=== PATIENT | male | born 1960 | race Caucasian/White ===

== ENCOUNTER 2017-01-31 07:18 | Outpatient (CLI) | payer MEDICAID ==
[~2017-01-31] VITALS: Ht 172.7 cm; Wt 90.9 kg
--- NOTE | ~2017-01-31 | HEMODYNAMI ---
PATIENT:TIGRE DE LEÓN MEDICAL RECORD: [id number] : 64 LOCATION:[facility] ADMISSION DATE: 01/31/17 Generatedon:01/31/20179:51 Patient name: TIGRE DE LEÓN Patient #: [id number] SSN: [id number] : 1960 Date of study: 01/31/2017 Page: Of Hemodynamic Procedure Report Patient Data Patient Demographics Procedure consent was obtained First Name: TIGRE Gender: Male Last Name: SARTHAK : 1960 Patient #: [id number] Age: 56 year(s) Race: Unknown SSN: [id number] Additional ID: [id number] Contact details [address]: [address] [place] [address] State: [place] City: [place] Zip code: [address] Past Medical History Allergies Allergen Reaction Date Comments Reported Other allergy 01/31/2017 Atenolol, Naproxen Admission Admission Data Admission Date: 01/31/2017 Admission Time: 7:18 Arrival Date: 01/31/2017 Arrival Time: 0:00 Admit Source: Other Insurance Payor: Private health insurance Height (in.): 69 BSA: 2.08 (m2) Height (cm.): 175.26 BMI: 30.13 (kg/m2) Weight (lbs.): 204 Weight (kg.): 92.53 Lab Results Lab Result Date: 01/31/2017 Lab Result Time: 0:00 Biochemistry Name Units Result Min Max BUN mg/dl 20 --(----)*- 7 18 Creatinine mg/dl 1 --(--*-)-- 0.6 1.3 CBC Name Units Result Min Max Hemoglobin g/dl 14.6 --(-*--)-- 13.5 17.5 Procedure Procedure Types Cath Procedure Diagnostic Procedure [facility] w/Coronaries FFR/IVUS PCI Procedure Coronary Stent Initial Miscellaneous Procedures Moderate Sedation up to 15 minutes Procedure Description Procedure Date Procedure Date: 01/31/2017 Procedure Start Time: 9:34 Procedure End Time: 9:50 Procedure Staff Name Function Alexsander Hinds MD Performing Physician Cecilia Colon RN Nurse Tonia Aguirre RT Monitor Davin Hope RT Scrub Procedure Data Cath Procedure Fluoroscopy Diagnostic fluoroscopy Total fluoroscopy Time: 4.4 time: 4.4 min min Diagnostic fluoroscopy Total fluoroscopy dose: 750 dose: 750 mGy mGy Contrast Material Contrast Material Type Amount (ml) Isovue 300 98 Entry Location Entry Primary Successful Side Size Upsize Upsize Entry Closure [place]ina ccessful Closure Location (Fr) 1 (Fr) 2 (Fr) Remarks Device Remarks Radial Right 6 Fr Mechanical TR b artery Short Compression Estimated blood loss: 10 ml Diagnostic catheters Device Type Used For End Catheter Placement Terumo 5Fr [place] 110cm Procedure catheter Procedure Complications No complications Procedure Medications Medication Administration Route Dosage Oxygen NC 2 l/min Lidocaine 2% added to field 20 Heparin Flush Bag added to field 2 bags (1000units/500ml NS) 0.9% NaCl I.V. 100 ml/hr Versed I.V. 1 mg Fentanyl I.V. 50 mcg Versed I.V. 1 mg Fentanyl I.V. 50 mcg Radial Cocktail I.A. 1 syringe (Verapomil 2mg/Nitro 400mcg/Heparin 1500units) Heparin Bolus I.V. 4000 units Fentanyl I.V. 25 mcg Hemodynamics Rest BSA: 2.08 (m2) HGB: 14.6 (g/dl) O2 Consumption: Estimated: 236.32 (ml/min) O2 Co nsumption indexed: Estimated:113.62 (ml/min/m) Heart Rate: 56 (bpm) Snapshots Pre Cath Intra NCS Post Cath Vital Signs Time Heart Resp SPO2 etCO2 KA7hcpm NIBP (mmHg) Rhythm Pain Sedation Rate (ipm) (%) (mmHg) (mmHg) Status Level (bpm) 9:19:17 56 19 99 0 0 135/81(108) NSR 0 (11) 10(A) , No pain 9:23:29 60 18 99 0 0 124/83(97) NSR 0 (11) 10(A) , No pain 9:27:41 65 17 95 0 0 121/79(89) NSR 0 (11) 10(A) , No pain 9:31:51 70 14 96 0 0 124/78(92) NSR 0 (11) 9(A) , No pain 9:36:03 72 25 93 0 0 119/69(90) NSR 0 (11) 9(A) , No pain 9:40:15 74 15 95 0 0 118/71(88) NSR 0 (11) 9(A) , No pain 9:44:26 69 16 95 0 0 119/71(79) NSR 0 (11) 9(A) , No pain 9:48:39 69 16 95 0 0 116/71(77) NSR 0 (11) 9(A) , No pain 9:50:21 65 17 94 0 0 116/71(87) NSR 0 (11) 10(A) , No pain Medications Time Medication Route Dose Verified Delivered Reason Notes Effectiveness by by 9:20:39 Oxygen NC 2 l/min Alexsander Brooks used for Guzman Colon RN procedure 9:20:45 Lidocaine 2% added 20ml Alexsander Beltre for local to vial Guzman Hinds MD anesthetic field 9:20:54 Heparin Flush added 2 bags Alexsander Beltre used for Bag to Guzman Hinds MD procedure (1000units/500ml field NS) 9:21:03 0.9% NaCl I.V. 100 Alexsander Brooks Per physician ml/hr Guzman Colon RN 9:25:16 Versed I.V. 1 mg Alexsander Brooks for sedation Guzman Colon RN 9:25:22 Fentanyl I.V. 50 mcg Alexsander Brooks for sedation Guzman Colon RN 9:29:56 Versed I.V. 1 mg Alexsander Brooks for sedation Guzman Colon RN 9:30:00 Fentanyl I.V. 50 mcg Alexsander Brooks for sedation Guzman Colon RN 9:33:59 Radial Cocktail I.A. 1 Alexsander Beltre for (Verapomil syringe Guzman Hinds MD vasodilation 2mg/Nitro 400mcg/Heparin 1500units) 9:38:50 Heparin Bolus I.V. 4000 Alexsander Brooks for units Guzman Colon RN anticoagulation 9:41:04 Fentanyl I.V. 25 mcg Alexsander Brooks for sedation Guzman Colon RN Procedure Log Time Note 9:06:38 Diagnostic Cath Status : Elective 9:06:58 Cecilia Colon RN sent for patient. Start room use. 9:06:59 Time tracking: Regular hours 9:07:02 Plan of Care:Hemodynamics will remain stable., Cardiac rhythm will remain stable., Comfort level will be maintained., Respiratory function will remain adequate., Patient/ family verbilizes understanding of procedure., Procedure tolerated without complication., Recovers from procedure without complications.. 9:08:15 H&P Date Dictated: 01/10/2017 Within 30 days and on chart., H&P Addendum completed by physician on day of procedure. (MUST COMPLETE FOR ALL OUTPATIENTS). 9:17:40 Patient Height : 69 cm 9:17:44 Patient Weight : 204 kg 9:17:44 Admit Source: Other 9:17:52 Insurance Payor : Private health insurance 9:17:55 Arrival Date: 01/31/2017 12:00:00 AM 9:18:05 Patient received from Pre/Post Procedure Room to CCL 1 Alert and oriented. Tansferred to table in Supine position. 9:18:06 Warm blankets applied, and jose hugger turned on for patient comfort. 9:18:07 Correct patient and procedure confirmed by team. 9:18:08 Signed procedure consent form obtained from patient. 9:18:10 ECG and BP/O2 sat monitors applied to patient. 9:18:11 Vital chart was started 9:18:12 Baseline sample Acquired. 9:18:18 Rhythm: sinus rhythm 9:18:20 Full Disclosure recording started 9:18:26 Pre-procedure instructions explained to patient. 9:18:28 Family in waiting room. 9:18:30 Patient NPO since Midnight. 9:19:21 Patient allergic to Other allergyAtenolol, Naproxen 9:19:26 Is the patient allergic to Iodine/contrast media? No. 9:19:28 Is patient on blood thinner?Yes 9:19:31 ACC The patient was administered the following blood thiners within the last 24 hours: ACCPlavix 9:19:33 Patient diabetic? No. 9:19:38 Snore? Yes 9:19:40 Sleep apnea? Yes 9:19:49 Dentures? No ? 9:20:05 IV patent on arrival in left forearm with 0.9% NaCl at O. 9:20:18 Physician arrived 9:20:39 Oxygen 2 l/min NC was administered by Cecilia Colon RN; used for procedure; 9:20:45 Lidocaine 2% 20ml vial added to field was administered by Alexsander Hinds MD; for local anesthetic; 9:20:54 Heparin Flush Bag (1000units/500ml NS) 2 bags added to field was administered by Alexsander Hinds MD; used for procedure; 9:21:03 0.9% NaCl 100 ml/hr I.V. was administered by Cecilia Colon RN; Per physician; 9:23:22 Lab results completed and on chart. 9:23:27 Right Radial & Right Groin area was prepped with chlora-prep and draped in sterile fashion 9:: Alarms reviewed by R. N. 9::29 Sharps counted by scrub and verified by R.N. 9::30 Physician paged 9:23:32 Physician arrived 9::33 --------ALL STOP TIME OUT------ 9::33 Final Timeout: patient, procedure, and site verified with staff and physician. All members of the team are in agreement. 9:23:37 Right Radial & Right Groin site verified by team. 9:23:42 Physical assessment completed. ASA score P 2 - A patient with mild systemic disease as per Alexsander Hinds MD. 9:23:47 Sedation plan: IV Moderate Sedation Versed, Fentanyl 9:24:45 Lab Result : BUN 20 mg/dl 9::45 Lab Result : Creatinine 1 mg/dl 9:24:45 Lab Result : Hemoglobin 14.6 g/dl 9:24:52 Use device set Radial Dx 9:24:53 Acist Syringe opened to sterile field. 9:24:54 Medline Cath Pack opened to sterile field. 9:24:54 Bag Decanter opened to sterile field. 9:24:54 Terumo 6Fr Slender Glidesheath opened to sterile field. 9:24:55 St Jason 260cm J .035 wire opened to sterile field. 9:24:55 Acist Hand Control opened to sterile field. 9:24:56 Acist Manifold opened to sterile field. 9:24:56 Tegaderm 4 x 4 opened to sterile field. 9:24:57 MBrace Wrist Support opened to sterile field. 9:25:16 Versed 1 mg I.V. was administered by Buffie Colon RN; for sedation; 9:25:22 Fentanyl 50 mcg I.V. was administered by Cecilia Colon RN; for sedation; 9:29:56 Versed 1 mg I.V. was administered by Cecilia Colon RN; for sedation; 9:30:00 Fentanyl 50 mcg I.V. was administered by Cecilia Colon RN; for sedation; 9:33:59 Radial Cocktail (Verapomil 2mg/Nitro 400mcg/Heparin 1500units) 1 syringe I.A. was administered by Alexsander Hinds MD; for vasodilation; 9:34:12 Procedure started. 9:34:17 Local anesthetic to right radial artery with Lidocaine 2% by Alexsander Hinds MD.INITIAL ACCESS ONLY 9:34:26 A 6 Fr Short sheath was inserted into the Right Radial artery 9:34:42 Zero performed for pressure channel P1 9:34:49 Zero performed for pressure channel P1 9:35:03 J wire advanced. 9:35:35 A Webjam 5Fr [place] 110cm catheter was advanced over the wire and used for Procedure. 9:35:41 LV angiography performed. 9:35:46 EF : 60 % 9:35:57 RCA angiography performed. 9:36:20 Catheter removed. 9:36:59 Proceeding to intervention. 9:37:01 Medtronic Launcher 6Fr EBU 3.5 guide catheter opened to sterile field. 9:37:08 NantMobile BasixCompak Inflation Kit opened to sterile field. 9:37:09 Dyer New KCBXisper J 300cm 0.014 guide wire opened to sterile field. 9:37:21 6 Fr EBU 3.5 guide catheter was inserted over the wire 9:38:50 Heparin Bolus 4000 units I.V. was administered by Cecilia Colon RN; for anticoagulation; 9:39:59 [place] Inaja Eagleye IVUS Catheter opened to sterile field. 9:40:00 Medtronic Launcher 6Fr AR 2.0 guide catheter opened to sterile field. 9:40:06 5 Fr ? guide catheter was inserted over the wire 9:40:11 6 Fr AR 2 guide catheter was inserted over the wire 9:40:27 Whisper wire advanced. 9:41:04 Fentanyl 25 mcg I.V. was administered by Cecilia Colon RN; for sedation; 9:41:20 IVUS catheter advanced over wire. 9:41:24 IVUS pass to RCA lesion performed. 9:42:57 IVUS catheter removed over wire. 9:43:51 Wire removed. 9:43:52 Guide catheter removed. 9:43:55 6 Fr EBU 3.5 guide catheter was inserted over the wire 9:44:20 Whisper wire advanced. 9:46:40 Inflation Number: 1 A Medtronic Integrity 3.0 X 9 stent was prepped and advanced across the Undefined1. The stent was deployed at 13 PAM for 0:10 (min:sec). 9:47:35 Terumo TR Band Standard opened to sterile field. 9:47:42 Wire removed. 9:47:43 Guide catheter removed. 9:48:08 Sheath removed intact; hemostasis achieved with Mechanical Compression to the Right Radial artery. 9:48:12 Procedure ended.(Physican Out) 9:48:41 Fluoroscopy time 04.40 minutes. 9:48:48 Fluoroscopy dose: 750 mGy 9:48:48 Flurop Dose total: 750 9:48:52 Contrast amount:Isovue 300 98ml. 9:48:54 Sharps counted by scrub and verified by R.N. 9:48:59 TR band inflated with 13cc of air. 9:49:01 Insertion/operative site no bleeding no hematoma. 9:49:10 Post right radial artery:stable 9:49:15 Post Procedure Pulses reassessed and unchanged 9:49:19 Post-procedure physical assessment completed. ASA score P 2 - A patient with mild systemic disease as per Alexsander Hinds MD. 9:49:22 Post procedure rhythm: unchanged. 9:49:25 Estimated blood loss: 10 ml 9:49:28 Post procedure instruction explained to patient.Patient verbalizes understanding. 9:49:51 Procedure type changed to Cath procedure, Diagnostic procedure, LHC, LHC w/Coronaries, FFR/IVUS, PCI procedure, Coronary Stent Initial, Miscellaneous Procedures, Moderate Sedation up to 15 minutes 9:49:53 Procedure and supply charges have been captured, reviewed, submitted and are correct. 9:50:26 Procedure Complication : No complications 9:50:28 Vital chart was stopped 9:50:29 See physician's report for complete and final results. 9:50:34 Report given to Pre/Post Procedure Room. 9:50:38 Patient transfered to Pre/Post Procedure Room with Stretcher. 9:50:41 Procedure ended. 9:50:41 Full Disclosure recording stopped 9:50:44 End room use (Document Last) 9:50:44 End room use (Document Last) Intervention Summary Intervention Notes Time ActionType Lesion and Equipment Action# Pressure Duration Attributes Used 9:46:[address] Place stent Undefined1 Medtronic 1 13 00:10 Integrity 3.0 X 9 stent Device Usage Item Name Manufacture Quantity Catalog Hospital Part Current Minimal Lot# / Number Charge Number Stock Stock Serial# Code Acist Acist 1 36899 [id number] 253372 336432 20 Syringe Medical Systems Inc Medline Cardinal 1 [id number] 370223 90058 882641 5 Cath Pack Health Bag Microtek 1 2001S 472176 75575 530736 5 [employer] Terumo 6Fr Terumo 1 [id number] 332223 607267 556271 [address] Jason 1 441937 690985 849457 374750 30 260cm J .035 wire Acist Hand Acist 1 70011 520152 077613 529574 5 Control Medical Systems Inc Acist Acist 1 72628 266785 286435 770606 5 Manifold Medical Systems Inc Tegaderm 4 3M 1 1626W 291602 577300 029551 5 x 4 MBrace Advanced 1 140-0250-00 976910 11033 872968 5 Wrist Vascular Support Dynamics Terumo 5Fr Terumo 1 77-8842 190630 617156 101513 5 [place] 110cm catheter Medtronic Medtronic 1 [id number] 732365 51908 534758 3 Launcher 6Fr EBU 3.5 guide catheter Merit Merit 1 [id number] 474557 166117 911248 15 BasixCompak Medical Inflation Kit Dyer Dyer 1 [id number] 623920 851007 158786 5 Whisper J Vascular 300cm 0.014 guide wire [place] 1 [id number] 570568 895404 405110 8 Inaja Eagleye IVUS Catheter Medtronic Medtronic 1 [id number] 267615 47660 597852 1 Launcher 6Fr AR 2.0 guide catheter Medtronic Medtronic 1 [id number] 110896 219721 780911 1 [id number] Integrity 3.0 X 9 stent Terumo TR Terumo 1 [id number] 362548 578594 727436 40 Band Standard Signature Audit [place] Stage Time Signature Unsigned Intra-Procedure 01/31/2017 Tonia Aguirre 9:51:27 AM RT(R) Signatures Monitor : Tonia Aguirre Signature : RT Date : Time : [place] [id number] [place] [address]
[2017-01-31] MEDS ORDERED: PRINIVIL20 MG PO (07:37)
[2017-01-31] MEDS ORDERED: PLAVIX75 MG PO (07:37)
[2017-01-31 07:38] VITALS: BP 132/85; Ht 172.7 cm; Wt 90.9 kg
[2017-01-31 07:56] LABS: BASOPHILS 0.1 % (0.0-2.0); EOSINOPHILS 0.7 % (0-7); HEMATOCRIT 43.1 % (42.0-54.0); HEMOGLOBIN 14.6 g/dL (13.5-17.5); LYMPHOCYTES 25.9 % (15-50); MCH 27.9 pg (26.0-34.0); MCHC 33.9 g/dL (31.0-37.0); MCV 82.3 fL (80.0-100.0); MEAN PLATELET VOLUME 11.1 fL (7.4-10.4); MONOCYTES 8.2 % (2-11); NEUTROPHILS 64.1 % (40-80); PLATELET COUNT 181 10x3/uL (130-400); RBC 5.24 10x6/uL (4.20-6.10); RDW 13.8 % (11.5-14.5); WBC 10.4 10x3/uL (4.8-10.8)
[2017-01-31 08:39] LABS: CALC OSMOLALITY 274 mosm/kg (275-300); CALCIUM 8.8 mg/dL (8.5-10.1); CARBON DIOXIDE 23.9 mmol/L (21.0-32.0); CHLORIDE - SERUM 103 mmol/L (98-107); GLUCOSE 96 mg/dL (74-106); POTASSIUM - SERUM 4.2 mmol/L (3.5-5.1); SODIUM 136 mmol/L (136-145); UREA NITROGEN 20 mg/dL (7-18); eGFR NON AFRICAN AMERICAN 83 mL/min (90-120)
[2017-01-31] MEDS ORDERED: BAYER CHEWABLE81 MG PO (10:14)
--- NOTE | 2017-01-31 10:36 | NUR ---
1015 NSR RATE 64 W NO C/O CHEST PAIN. PULSES PALP X 4. DR. MCNALLY AT BEDSIDE TO TALK WITH ABOUT FINDINGS. ROOM AIR W NO DISTRESS. R WRIST TR BAND C/D/I WITH BRACE IN PLACE. REMAINS C/D/I WITH NO HEMATOMA OR BLEEDING. AT BEDSIDE.
--- NOTE | 2017-01-31 11:10 | NUR ---
1045 SITTING UP, ROOM AIR WITH NO DISTRESS. NSR RATE 62 W NO C/O CHEST PAIN. PULSES PALP X 4. R WRIST TR BAND C/D/I WITH NO HEMATOMA OR BLEEDING.
--- NOTE | 2017-01-31 12:36 | NUR ---
SITTING UP IN BED EATING SANDWICH. VOIDED 600 CC URINE VIA URINAL. R WRIST TR BAND C/D/I WITH NO HEMATOMA OR BLEEDING.
--- NOTE | 2017-01-31 13:36 | NUR ---
PIV REMOVED FROM LEFT HAND WITH BANDAID APPLIED. 3CC REMOVED FROM R WRIST TR BAND. WILL MONITOR FOR BLEEDING.
--- NOTE | 2017-01-31 13:52 | NUR ---
TR BAND REMOVED, DRESSED WITH COTTON BALL AND TEGADERM WITH BRACE INTACT. D/C INSTRUCTIONS DISCUSSED WITH PATIENT AND AT BEDSIDE. WHEELED OUT VIA WHEELCHAIR.
--- NOTE | 2017-02-10 10:19 | OP ---
PATIENT NAME: TIGRE DE LEÓN MEDICAL RECORD: [id number] :64 LOCATION:[facility] ADMISSION DATE: SURGEON: LITA MCNALLY MD DATE OF OPERATION: 01/31/2017 PROCEDURES: 1. PTCA stent, left circumflex. 2. Left heart catheterization. 3. Selective coronary angiography. 4. Left ventriculogram. 5. Intravascular ultrasound. PROCEDURE IN DETAIL: After informed consent was obtained and after detailed explanation of risks, benefits as well as alternative therapies, the patient elected to proceed with angiogram and angioplasty. The right radial area was prepped and draped in normal sterile fashion. The right radial artery was cannulated via modified Seldinger technique with placement of 6-Malian sheath. All catheters exchanged through this sheath. FINDINGS: Left ventriculogram was performed in the standard 30-degree JAIMES view, reveals good cardiac wall motion throughout all segments. Overall ejection fraction is 60%. SELECTIVE CORONARY ANGIOGRAPHY: 1. Left main showed no significant angiographic disease. 2. Left anterior descending has mild irregularities, but no flow-limiting stenosis. 3. The left circumflex has 70%-75% stenosis of the terminal large second obtuse marginal. 4. Right coronary has mild irregularities, there was a questionable area in the mid vessel; however, intravascular ultrasound revealed that this is no greater than 30%. PTCA STENT OF THE LEFT CIRCUMFLEX: The stent used is a 3.0 x 9 mm Integrity. Result was 0% residual stenosis. OVERALL IMPRESSION: Successful percutaneous transluminal coronary angioplasty stent of the left circumflex going from 70%-75% initial stenosis to 0% residual. TRANSINT:[id number] Voice Confirmation ID: [id number] DOCUMENT ID: [id number] LITA MCNALLY MD at 1019 CC: [id number] DICTATION DATE: 01/31/17 0952 EQUIPMENT INSTALLER: 01/31/17 1004 DEP CLI 01/31/17 [place] [id number]
== END 2017-01-31 13:54 | disposition home or self-care (01) ==
LOC: D.CATH 07:18
PROVIDERS: Internal Medicine Interventional Cardiology
DX: I25.119 Atherosclerotic heart disease of native coronary artery with unspecified angina pectoris (principal)

== ENCOUNTER 2019-01-21 07:54 | Outpatient (CLI) | payer OTHER ==
[~2019-01-21] VITALS: Ht 172.7 cm; Wt 90.9 kg
--- NOTE | ~2019-01-21 | HEMODYNAMI ---
PATIENT:TIGRE DE LEÓN MEDICAL RECORD: [id number] : 64 LOCATION:[facility] ADMISSION DATE: 01/21/19 Generatedon:01/21/201910:16 Patient name: TIGRE DE LEÓN Patient #: [id number] SSN: [id number] : 1960 Date of study: 01/21/2019 Page: Of Hemodynamic Procedure Report Patient Data Patient Demographics Procedure consent was obtained First Name: TIGRE Gender: Male Last Name: SARTHAK : 1960 Middle Initial: MATTHEW Age: 58 year(s) Patient #: [id number] Race: Unknown SSN: [id number] Additional ID: [id number] Contact details [address]: [address] [place] [address] State: [place] City: [place] Zip code: [address] Past Medical History Allergies Allergen Reaction Date Comments Reported Other allergy 01/31/2017 Atenolol, Naproxen Other allergy 01/21/2019 ATENOLOL, NAPROXEN Admission Admission Data Admission Date: 01/21/2019 Admission Time: 7:54 Height (in.): 68 BSA: 2.14 (m2) Height (cm.): 172.72 BMI: 33.91 (kg/m2) Weight (lbs.): 223 Weight (kg.): 101.15 Lab Results Lab Result Date: 01/21/2019 Lab Result Time: 0:00 Biochemistry Name Units Result Min Max BUN mg/dl 14 --(--*-)-- 7 18 Creatinine mg/dl 1.1 --(--*-)-- 0.6 1.3 CBC Name Units Result Min Max Hemoglobin g/dl 14.5 --(*---)-- 13.5 17.5 Procedure Procedure Types Cath Procedure Diagnostic Procedure [facility] w/Coronaries FFR/IVUS Intra-Coronary IVUS Initial PCI Procedure Coronary Stent Coronary Stent Initial Procedure Description Procedure Date Procedure Date: 01/21/2019 Procedure Start Time: 9:57 Procedure End Time: 10:13 Procedure Staff Name Function Randy Garcia RN Cat Cracker Operator Alexsander Hinds MD Performing Physician Matthew Valle RT Monitor Radha Pagan RT Scrub Sophia Ford RN Nurse Procedure Data Cath Procedure Fluoroscopy Diagnostic fluoroscopy Total fluoroscopy Time: 5.5 time: 5.5 min min Diagnostic fluoroscopy Total fluoroscopy dose: 706 dose: 706 mGy mGy Contrast Material Contrast Material Type Amount (ml) Isovue 300 106 Entry Location Entry Primary Successful Side Size Upsize Upsize Entry Closure [place]ina ccessful Closure Location (Fr) 1 (Fr) 2 (Fr) Remarks Device Remarks Radial Right 6 Fr Mechanical artery Short Compression Diagnostic catheters Device Type Used For End Catheter Placement DIAGNOSTIC Bunker 110cm 5 Left Coronary Fr catheter ([id number]) Angiography Procedure Complications No complications Procedure Medications Medication Administration Route Dosage 0.9% NaCl I.V. 100 ml/hr Oxygen etCO2 Nasal cannula 2 l/min Lidocaine 2% added to field 20 Heparin Flush Bag added to field 2 bags (1000units/500ml NS) Radial Cocktail added to field 1 syringe (Verapomil 2mg/Nitro 400mcg/Heparin 1500units) Versed I.V. 2 mg Fentanyl I.V. 50 mcg Versed I.V. 1 mg Fentanyl I.V. 25 mcg Heparin Bolus I.V. 4000 units Hemodynamics Rest BSA: 2.14 (m2) HGB: 14.5 (g/dl) O2 Consumption: Estimated: 256.46 (ml/min) O2 Co nsumption indexed: Estimated:119.84 (ml/min/m) Heart Rate: 74 (bpm) Snapshots Pre Cath Intra NCS Post Cath Vital Signs Time Heart Resp SPO2 etCO2 NIBP (mmHg) Rhythm Pain Sedation Rate (ipm) (%) (mmHg) Status Level (bpm) 9:45:40 58 18 96 37 123/81(98) NSR 0 (11) 10(A) , No pain 9:49:52 61 16 97 32.3 121/90(102) NSR 0 (11) 10(A) , No pain 9:54:06 75 12 96 39.1 114/78(99) NSR 0 (11) 10(A) , No pain 9:58:20 75 15 98 33.8 114/79(88) NSR 0 (11) 10(A) , No pain 10:02:34 84 14 98 34.5 110/65(94) NSR 0 (11) 9(A) , No pain 10:06:46 80 15 96 20.3 111/72(96) NSR 0 (11) 9(A) , No pain 10:10:57 80 15 98 23.3 109/67(83) NSR 0 (11) 10(A) , No pain Medications Time Medication Route Dose Verified Delivered Reason Not es Effectiveness by by 9:44:53 0.9% NaCl I.V. 100 Alexsander Sophia used for ml/hr Guzman Ford scooping machine tender 9:44:59 Oxygen etCO2 2 l/min Alexsander Sophia used for Nasal Guzman Ford procedure cannula RN 9:45:04 Lidocaine 2% added 20ml Alexsander Alexsander for local to vial Guzman Hinds MD anesthetic field 9:45:08 Heparin Flush added 2 bags Alexsander Alexsander used for Bag to Guzman Hinds MD procedure (1000units/500ml field NS) 9:45:14 Radial Cocktail added 1 Alexsander Alexsander used for (Verapomil to syringe Guzman Hinds MD procedure 2mg/Nitro field 400mcg/Heparin 1500units) 9:53:44 Versed I.V. 2 mg Alexsander Sophia for sedation Guzman Ford RN 9:53:52 Fentanyl I.V. 50 mcg Alexsander Sophia for sedation Guzman Ford RN 9:59:05 Versed I.V. 1 mg Alexsander Sophia for sedation Guzman Ford RN 9:59:10 Fentanyl I.V. 25 mcg Alexsander Sophia for sedation Guzman Ford RN 10:05:44 Heparin Bolus I.V. 4000 Alexsander Sophia for shaheen ified units Guzman Ford anticoagulation with Dr. TOMAS Hinds Procedure Log Time Note 9:34:07 Informed consent obtained and on chart 9:34:48 Randy Garcia RN sent for patient. Start room use. 9:34:49 Time tracking: Regular hours (M-F 7:00 - 5:00) 9:35:01 Plan of Care:Hemodynamics will remain stable., Cardiac rhythm will remain stable., Comfort level will be maintained., Respiratory function will remain adequate., Patient/ family verbilizes understanding of procedure., Procedure tolerated without complication., Recovers from procedure without complications.. 9:38:21 Patient received from Pre/Post Procedure Room to CCL 1 Alert and oriented. Tansferred to table in Supine position. 9:38:23 Warm blankets applied, and jose hugger turned on for patient comfort. 9:38:23 Correct patient and procedure confirmed by team. 9:38:24 ECG and BP/O2 sat monitors applied to patient. 9:40:24 H&P Date Dictated: 01/14/2019 Within 30 days and on chart., H&P Addendum completed by physician on day of procedure. (MUST COMPLETE FOR ALL OUTPATIENTS). 9:40:26 Pre-procedure instructions explained to patient. 9:40:27 Pre-op teaching completed and patient verbalized understanding. 9:40:29 Family in patients room. 9:40:35 Patient NPO since Midnight. 9:40:55 Patient allergic to Other allergyATENOLOL, NAPROXEN 9:41:22 PRE LOADED ON PLAVIX 9:41:26 Patient diabetic? No. 9:41:30 Previous problem with sedation/anesthesia? No ? 9:41:31 Snore? Yes 9:41:32 Sleep apnea? Yes 9:41:33 Deviated septum? No 9:41:35 Opens mouth fully? Yes 9:41:36 Sticks out tongue? Yes 9:41:38 Airway obstruction? No ? 9:41:40 Dentures? No ? 9:41:55 Patient Height : 68 inches 9:42:00 Patient Weight : 223 lbs 9:44:31 Vital chart was started 9:44:53 0.9% NaCl 100 ml/hr I.V. was administered by Sophia Ford RN; used for procedure; 9:44:59 Oxygen 2 l/min etCO2 Nasal cannula was administered by Sophia Ford RN; used for procedure; 9:45:04 Lidocaine 2% 20ml vial added to field was administered by Alexsander Hinds MD; for local anesthetic; 9:45:08 Heparin Flush Bag (1000units/500ml NS) 2 bags added to field was administered by Alexsander Hinds MD; used for procedure; 9:45:14 Radial Cocktail (Verapomil 2mg/Nitro 400mcg/Heparin 1500units) 1 syringe added to field was administered by Alexsander Hinds MD; used for procedure; 9:47:47 Lab Result : BUN 14 mg/dl 9:47:47 Lab Result : Hemoglobin 14.5 g/dl 9:47:47 Lab Result : Creatinine 1.1 mg/dl 9:47:51 Modified Riley's test Ulnar < 7 seconds 9:47:57 Patient pain scale 0/10 ?. 9:48:04 IV patent on arrival in left hand with 0.9% NaCl at O. 9:48:07 Lab results completed and on chart. 9:48:12 Right Radial & Right Groin area was prepped with chlora-prep and draped in sterile fashion 9:48:14 Alarms reviewed by R. N. 9:48:14 Sharps counted by scrub and verified by R.N. 9:48:25 Use device set Radial Dx or PCI 9:48:26 ACIST Syringe (87855) opened to sterile field. 9:48:26 Medline Cath Pack ([id number]) opened to sterile field. 9:48:28 Tegaderm 4 x 4 (1626W) opened to sterile field. 9:48:31 Bag Decanter (2002S) opened to sterile field. 9:48:32 ACIST Hand Control (06950) opened to sterile field. 9:48:33 ACIST Manifold (82474) opened to sterile field. 9:48:34 DIAGNOSTIC WIRE .035 260cm J wire (023660) opened to sterile field. 9:48:35 MBrace Wrist Support ([id number]) opened to sterile field. 9:48:36 SHEATH 6FR Slender (45-5130) opened to sterile field. 9:51:14 Baseline sample Acquired. 9:51:18 Rhythm: sinus rhythm 9:51:20 Full Disclosure recording started 9:52:22 Physician arrived 9:52:23 --------ALL STOP TIME OUT------ 9:52:23 Final Timeout: patient, procedure, and site verified with staff and physician. All members of the team are in agreement. 9:52:25 Right Radial & Right Groin site verified by team. 9:52:29 Maximum allowable Isovue 300 dose 300ml. Physician notified. (300ml for normal creatinines. For patients with creatinine of 1.7 or higher multiply weight(kg) x 5 divided by creatinine.) 9:52:34 Fire Safety Assessment: A--An alcohol-based skin anteseptic being used preoperatively., C--Open oxygen or nitrous oxide is being used., D--An ESU, laser, or fiber-optic light is being used. 9:52:41 Physical assessment completed. ASA score P 2 - A patient with mild systemic disease as per Radha Pagan RT(R). 9:52:46 Sedation plan: IV Moderate Sedation Medication:Versed, Fentanyl 9:53:44 Versed 2 mg I.V. was administered by Sophia Ford RN; for sedation; 9:53:52 Fentanyl 50 mcg I.V. was administered by Sophia Ford RN; for sedation; 9:55:07 Zero performed for pressure channel P1 9:55:15 Zero performed for pressure channel P1 9:57:33 Procedure started. 9:57:45 Local anesthetic to right radial artery with Lidocaine 2% by Alexsander Hinds MD.INITIAL ACCESS ONLY 9:58:19 A 6 Fr Short sheath was inserted into the Right Radial artery 9:59:02 A DIAGNOSTIC Bunker 110cm 5 Fr catheter ([id number]) was advanced over the wire and used for Left Coronary Angiography. 9:59:05 Versed 1 mg I.V. was administered by Sophia Ford RN; for sedation; 9:59:10 Fentanyl 25 mcg I.V. was administered by Sophia Ford RN; for sedation; 9:59:47 LV angiography performed. 9:59:49 LV gram done using JAIMES 10:00:02 EF : 65 % 10:00:34 RCA angiography performed. 10:01:26 Catheter exchanged over wire. 10:01:46 GUIDE 6FR XBLAD 3.5 catheter ([id number]) opened to sterile field. 10:02:00 6 Fr xblad 3.5 guide catheter was inserted over the wire 10:02:09 LCA angiography performed. 10:02:52 INFLATOR Merit BasixCompak (BM1198) opened to sterile field. 10:02:53 CHOICE PT Extra Support 182cm wire ([id number]) opened to sterile field. 10:02:56 TR BAND Standard ([id number]) opened to sterile field. 10:03:07 Catheter exchanged over wire. 10:04:13 GUIDE 6FR XBC 3 (13627500) opened to sterile field. 10:04:29 6 Fr XBC 3 guide catheter was inserted over the wire 10:04:45 [place] IVUS Catheter (82869G) opened to sterile field. 10:04:57 Procedure type changed to Cath procedure, Diagnostic procedure, LHC, LHC w/Coronaries, FFR/IVUS, Intra-Coronary IVUS Initial, PCI procedure, Coronary Stent, Coronary Stent Initial 10:05:04 CPTES wire advanced. 10:05:09 FFR/IVUS 10:05:10 IVUS catheter advanced over wire. 10:05:11 IVUS pass to LAD lesion performed. 10:05:44 Heparin Bolus 4000 units I.V. was administered by Sophia Ford RN; for anticoagulation; verified with Dr. Hinds 10:09:47 IVUS catheter removed over wire. 10:09:51 Wire removed. 10:10:03 CPTES wire advanced. 10:10:46 Place stent Inflation Number: 1 A INTEGRITY RX 3.5 x 09 stent ([id number]) was prepped and advanced across the 1st Ob Ene. The stent was deployed at 13 PAM for 0:10 (min:sec). 10:10:49 Stent catheter was removed intact over wire. 10:10:50 Wire removed. 10:10:53 Guide catheter removed. 10:11:03 Contrast amount:Isovue 300 106ml. 10:11:18 Sheath removed intact; hemostasis achieved with Mechanical Compression to the Right Radial artery. 10:11:28 Procedure ended.(Physican Out) 10:12:12 Fluoroscopy time 05.50 minutes. 10:12:19 Fluoroscopy dose: 706 mGy 10:12:19 Flurop Dose total: 706 10:12:21 Sharps counted by scrub and verified by R.N. 10:12:24 TR band inflated with 10cc of air. 10:12:34 Post-op/insertion site Right Femoral artery dressed using a 4 x 4 and Tegaderm. 10:13:15 Post Procedure Pulses reassessed and unchanged 10:13:21 Post procedure rhythm: sinus rhythm 10:13:26 Post-procedure physical assessment completed. ASA score P 2 - A patient with mild systemic disease as per Alexsander Hinds MD. 10:13:28 Post procedure instruction explained to patient.Patient verbalizes understanding. 10:13:29 Procedure and supply charges have been captured, reviewed, submitted and are correct. 10:13:44 Procedure Complication : No complications 10:13:47 Vital chart was stopped 10:13:47 See physician's report for complete and final results. 10:13:50 Report given to Pre/Post Procedure Room. 10:13:53 Patient transfered to Pre/Post Procedure Room with Stretcher. 10:13:56 Procedure ended. 10:13:56 Full Disclosure recording stopped 10:13:58 End room use (Document Last) 10:14:52 CHOICE PT Extra Support 182cm wire ([id number]) opened to sterile field. Intervention Summary Intervention Notes Time ActionType Lesion and Equipment Action# Pressure Duration Attributes Used 10:10:46 Place stent 1st Ob Ene INTEGRITY RX 1 13 00:10 3.5 x 09 stent ([id number]) Device Usage Item Name Manufacture Quantity Catalog Number Hospital Part Current Mini mal Lot# / Charge Number Stock Stock Serial# Code ACIST Acist 1 74440 474475 759151 770931 20 Syringe Medical (24771) Systems Inc Medline Cath Medline 1 [id number] 604623 88873 787931 5 Pack ([id number]) Tegaderm 4 x 3M 1 1626W 106075 871474 594904 5 4 (1626W) Bag Decanter Microtek 1 2002S 453570 35012 112393 5 (2002S) Medical Inc. ACIST Hand Acist 1 02467 401185 415995 600819 5 Control Medical (58079) Systems Inc ACIST Acist 1 79015 057349 882803 513806 5 Manifold Medical (94711) Systems Inc DIAGNOSTIC St Jason 1 578354 402415 225477 340732 30 WIRE .035 260cm J wire (353666) MBrace Wrist Advanced 1 140-0250-00 318178 54913 223215 5 Support Vascular (037752497) Dynamics SHEATH 6FR Terumo 1 [id number] 388340 283411 206736 5 Slender (80-1060) DIAGNOSTIC Terumo 1 40-9645 868252 581927 853166 5 Bunker 110cm 5 Fr catheter (930586) GUIDE 6FR Cardinal 1 [id number] 699823 758896 101905 10 XBLAD 3.5 Health catheter (62083075) INFLATOR Merit 1 BU8720 527483 815093 765284 15 [facility] Medical BasixCompak (RU1016) CHOICE PT [place] 2 [id number] 535177 625285 751669 5 Extra Scientific Support 182cm wire (5787067Y6) TR BAND Terumo 1 [id number] 610417 728848 494259 40 Standard ([id number]) GUIDE 6FR Cardinal 1 52300237 599334 15048 032154 5 XBC 3 Health (56492553) [place] 1 78785F 971796 078236 968867 8 [place] IVUS Catheter (93075U) INTEGRITY RX Medtronic 1 [id number] 658470 143100 344032 5 [id number] 3.5 x 09 stent ([id number]) Signature Audit [place] Stage Time Signature Unsigned Intra-Procedure 01/21/2019 Matthew JAMES(Eleanor) 10:16:01 AM Signatures Monitor : Matthew Valle RT Signature : Date : Time : [place] [id number] [place] [address]
--- NOTE | ~2019-01-21 | OP ---
PATIENT NAME: TIGRE DE LEÓN MEDICAL RECORD: [id number] :64 LOCATION:D.CAT ADMISSION DATE: SURGEON: LITA MCNALLY MD DATE OF OPERATION: 01/21/2019 PROCEDURES: 1. PTCA stent left circumflex. 2. Left heart catheterization. 3. Selective coronary angiography. 4. Left ventriculogram. 5. Intravascular ultrasound. PROCEDURE IN DETAIL: After informed consent was obtained and after a detailed description of the risks, benefits as well as alternative therapies, the patient elected to proceed with angiogram and angioplasty. The right radial area was prepped and draped in normal sterile fashion. Right radial artery was cannulated via modified Seldinger technique with placement of 6-Upper Sorbian sheath. All catheters exchanged through this sheath. FINDINGS: Left ventriculogram was performed in the standard 30-degree JAIMES view reveals good cardiac wall motion. Overall ejection fraction is 60%. SELECTIVE CORONARY ANGIOGRAPHY: 1. Left main is with no significant angiographic disease. 2. Left anterior descending has approximately 50% stenosis in the mid vessel confirmed by intravascular ultrasound. 3. The left circumflex has 80% stenosis in mid vessel. 4. Right coronary artery has moderate irregularities, but no flow-limiting stenosis. PTCA STENT OF THE LEFT CIRCUMFLEX: The stent used was a 3.5 x 8 mm Integrity. Result was 0% residual stenosis. OVERALL IMPRESSION: Successful percutaneous transluminal angioplasty stent of the left circumflex going from 80% initial stenosis to 0% residual. TRANSINT:[id number] Voice Confirmation ID: [id number] DOCUMENT ID: [id number] LITA MCNALLY MD CC: [id number] DICTATION DATE: 01/21/19 1017 VESSEL CREW MEMBER: 01/21/19 1107 [facility] [address] [place] [address]
[~2019-01-21 07:54] MED LIST: BAYER CHEWABLE81 MG PO; PLAVIX75 MG PO; PRINIVIL20 MG PO
[2019-01-21] MEDS ORDERED: NITROQUICK0.4 MG SL (08:15)
[2019-01-21 08:29] VITALS: BP 130/81; Ht 172.7 cm; Wt 90.9 kg
[2019-01-21 08:40] LABS: BASOPHILS 0.7 % (0-2); EOSINOPHILS 2.5 % (0-7); HEMATOCRIT 42.1 % (42.0-54.0); HEMOGLOBIN 14.5 g/dL (13.5-17.5); IMMATURE GRANULOCYTES 0.7 % (0-5); MCHC 34.4 g/dL (31.0-37.0); MCV 81.3 fL (80.0-100.0); MEAN PLATELET VOLUME 9.9 fL (7.4-10.4); MONOCYTES 10.6 % (2-11); NEUTROPHILS 53.5 % (40-80); PLATELET COUNT 198 10x3/uL (130-400); RBC 5.18 10x6/uL (4.20-6.10); RDW 13.3 % (11.5-14.5)
[2019-01-21 08:48] LABS: ANION GAP 16.3 mmol/L (8-16); CALCIUM 8.8 mg/dL (8.5-10.1); CARBON DIOXIDE 21.9 mmol/L (21.0-32.0); CREATININE - SERUM 1.1 mg/dL (0.6-1.3); POTASSIUM - SERUM 4.2 mmol/L (3.5-5.1)
[2019-01-21] MEDS ORDERED: PRAVACHOL40 MG PO (13:01)
== END 2019-01-21 15:02 | disposition home or self-care (01) ==
LOC: D.CATH 07:54
PROVIDERS: ATTEND Internal Medicine Interventional Cardiology
DX: I25.119 Atherosclerotic heart disease of native coronary artery with unspecified angina pectoris (principal); Z01.812 Encounter for preprocedural laboratory examination

== ENCOUNTER → 2020-03-09 10:05 | Outpatient (CLI) | payer MEDICAID ==
[2019-01-21 08:29] VITALS: BMI 30.4
[~2020-03-09 10:05] MED LIST changes: +NITROQUICK0.4 MG SL; +PRAVACHOL40 MG PO
== END | disposition home or self-care (01) ==
LOC: D.HCCARDIO 10:00
PROVIDERS: ATTEND Internal Medicine Cardiovascular Disease
DX: I25.10 Atherosclerotic heart disease of native coronary artery without angina pectoris (principal); R06.02 Shortness of breath; I10 Essential (primary) hypertension; R06.00 Dyspnea, unspecified

== ENCOUNTER 2020-03-31 06:58 | Outpatient (CLI) | payer MEDICAID ==
[~2020-03-31] VITALS: Ht 172.7 cm; Wt 95.5 kg
--- NOTE | ~2020-03-31 | HEMODYNAMI ---
PATIENT:TIGRE DE LEÓN MEDICAL RECORD: [id number] : 64 LOCATION:[facility] ADMISSION DATE: 03/31/20 Generatedon:03/31/202010:08 Patient name: TIGRE DE LEÓN Patient #: [id number] SSN: [id number] : 1960 Date of study: 03/31/2020 Page: Of Hemodynamic Procedure Report Patient Data Patient Demographics Procedure consent was obtained First Name: TIGRE Gender: Male Last Name: SARTHAK : 1960 Middle Initial: MATTHEW Age: 59 year(s) Patient #: [id number] Race: SSN: [id number] Additional ID: [id number] Contact details [address]: [address] [place] [address] State: [place] City: [place] Zip code: [address] Past Medical History History of disease Date Diagnosis Comments CAD Allergies Allergen Reaction Date Comments Reported Other allergy 01/31/2017 Atenolol, Naproxen Other allergy 01/21/2019 ATENOLOL, NAPROXEN Other allergy 03/31/2020 ATENOLOL, NAPROXEN, PRAVASTATIN Admission Admission Data Admission Date: 03/31/2020 Admission Time: 6:58 Arrival Date: 03/31/2020 Arrival Time: 0:00 Height (in.): 68 BSA: 2.16 (m2) Height (cm.): 172.72 BMI: 34.82 (kg/m2) Weight (lbs.): 229 Weight (kg.): 103.87 Lab Results Lab Result Date: 03/31/2020 Lab Result Time: 0:00 Biochemistry Name Units Result Min Max BUN mg/dl 21 --(----)-* 7 18 Creatinine mg/dl 1.1 --(--*-)-- 0.6 1.3 eGFR ml/min 73.84888 *-(----)-- 90 120 NONAFRICAN CBC Name Units Result Min Max Hematocrit % 43.3 --(*---)-- 42 54 Hemoglobin g/dl 14.6 --(-*--)-- 13.5 17.5 Procedure Procedure Types Cath Procedure Diagnostic Procedure [facility] w/Coronaries Sedation Charges Moderate Sedation up to 15 minutes Procedure Description Procedure Date Procedure Date: 03/31/2020 Procedure Start Time: 9:57 Procedure End Time: 10:06 Procedure Staff Name Function Tolu Hung MD Performing Physician Barbara Cheung RT Monitor Courtney Goncalves RT Scrub Sophia Ford RN Nurse Procedure Data Cath Procedure Fluoroscopy Diagnostic fluoroscopy Total fluoroscopy Time: 2.5 time: 2.5 min min Diagnostic fluoroscopy Total fluoroscopy dose: 702 dose: 702 mGy mGy Contrast Material Contrast Material Type Amount (ml) Isovue 300 49 Entry Location Entry Primary Successful Side Size Upsize Upsize Entry Closure Medina ccessful Closure Location (Fr) 1 (Fr) 2 (Fr) Remarks Device Remarks Radial Right 6 Fr Mechanical artery Short Compression Estimated blood loss: 5 ml Diagnostic catheters Device Type Used For End Catheter Placement DIAGNOSTIC Car 110cm Procedure 5Fr catheter ([id number]) Procedure Complications No complications Procedure Medications Medication Administration Route Dosage 0.9% NaCl I.V. 100 ml/hr Oxygen etCO2 Nasal cannula 2 l/min Lidocaine 2% added to field 20 Heparin Flush Bag added to field 2 bags (1000units/500ml NS) Radial Cocktail added to field 1 syringe (Verapamil 2mg/Nitro 400mcg/Heparin 1500units) Versed I.V. 2 mg Fentanyl I.V. 50 mcg Hemodynamics Rest BSA: 2.16 (m2) HGB: 14.6 (g/dl) O2 Consumption: Estimated: 249.22 (ml/min) O2 Co nsumption indexed: Estimated:115.38 (ml/min/m) Heart Rate: 63 (bpm) Pressure Samples Time Site Value (mmHg) Purpose Heart Use Rate(bpm) 9:58 LV 121/-6,10 Snapshot 79 Gradients Valve Time Site Site Mean SEP/DFP Peak To Heart Use 1 2 (mmHg) (sec/min) Peak Rate (mmHg) (bpm) Aortic 9:59 LV AO 79 Snapshots Pre Cath Intra NCS Post Cath Vital Signs Time Heart Resp SPO2 etCO2 NIBP (mmHg) Rhythm Pain Sedation Rate (ipm) (%) (mmHg) Status Level (bpm) 9:42:26 68 13 97 33 No Cuff NSR 0 (11) 10(A) , No pain 9:44:14 62 21 99 30.8 129/80(102) NSR 0 (11) 10(A) , No pain 9:48:24 75 18 96 36.1 123/83(97) NSR 0 (11) 10(A) , No pain 9:52:38 71 17 96 36.8 122/76(93) NSR 0 (11) 10(A) , No pain 9:56:50 67 18 96 34.6 117/77(88) NSR 0 (11) 10(A) , No pain 10:00:58 77 19 98 33.8 106/64(79) NSR 0 (11) 10(A) , No pain 10:05:05 70 19 95 33.1 108/73(87) NSR 0 (11) 10(A) , No pain Medications Time Medication Route Dose Verified Delivered Reason Notes Ef fectiveness by by 9:39:05 0.9% NaCl I.V. 100 Tolu Sophia used for ml/hr Abhilash Ford structural manager 9:39:13 Oxygen etCO2 2 l/min Tolu Sophia for local Nasal Abhilash Ford anesthetic cannula RN 9:39:19 Lidocaine 2% added 20ml Tolu Tolu for local to vial Abhilash Hung MD anesthetic field 9:39:23 Heparin Flush added 2 bags Tolu Tolu used for Bag to Abhilash Hung MD procedure (1000units/500ml field NS) 9:48:45 Radial Cocktail added 1 Tolu Sophia used for (Verapamil to syringe Abhilash Ford procedure 2mg/Nitro field RN 400mcg/Heparin 1500units) 9:50:12 Versed I.V. 2 mg Tolu Sophia for Abhilash Ford sedation RN 9:50:18 Fentanyl I.V. 50 mcg Tolu Sophia for Abhilash Ford sedation law writer Log Time Note 9:13:19 Informed consent obtained and on chart 9:13:39 Procedure Status Elective Heart Cath (OP). 9:13:40 Time tracking: Regular hours (M-F 7:00 - 5:00) 9:13:42 Plan of Care:Hemodynamics will remain stable., Cardiac rhythm will remain stable., Comfort level will be maintained., Respiratory function will remain adequate., Patient/ family verbilizes understanding of procedure., Procedure tolerated without complication., Recovers from procedure without complications.. 9:13:43 Barbara JAMES(R) (ANASTACIO) sent for patient. Start room use. 9:23:29 H&P Date Dictated: 03/02/2020 Within 30 days and on chart., H&P Addendum completed by physician on day of procedure. (MUST COMPLETE FOR ALL OUTPATIENTS). 9:23:40 Patient allergic to Other allergyATENOLOL, NAPROXEN, PRAVASTATIN 9:24:42 Patient Weight : 229 lbs 9:24:44 Patient Height : 68 inches 9:24:47 Arrival Date: 03/31/2020 12:00:00 AM 9:29:25 Stress Test: yes; abnormal ANTERIOR, APICAL, INFERIOR 9:30:13 Patient received from Pre/Post Procedure Room to CCL 1 Alert and oriented. Tansferred to table in Supine position. 9:30:14 Warm blankets applied, and jose hugger turned on for patient comfort. 9:30:14 Correct patient and procedure confirmed by team. 9:30:15 ECG and BP/O2 sat monitors applied to patient. 9:38:58 Vital chart was started 9:39:05 0.9% NaCl 100 ml/hr I.V. was administered by Sophia Ford RN; used for procedure; Verbal order read back and verified. 9:39:13 Oxygen 2 l/min etCO2 Nasal cannula was administered by Sophia Ford RN ; for local anesthetic; Verbal order read back and verified. 9:39:19 Lidocaine 2% 20ml vial added to field was administered by Tolu Hung MD ; for local anesthetic; Verbal order read back and verified. 9:39:23 Heparin Flush Bag (1000units/500ml NS) 2 bags added to field was administered by Tolu Hung MD; used for procedure; Verbal order read back and verified. 9:43:26 Baseline sample Acquired. 9:43:31 Rhythm: sinus rhythm 9:43:34 Full Disclosure recording started 9:43:35 - 9:43:35 Pre-procedure instructions explained to patient. 9:43:36 Pre-op teaching completed and patient verbalized understanding. 9:43:39 Family in patients room. 9:43:42 Patient NPO since Midnight. 9:43:50 Is the patient allergic to Iodine/contrast media? No. 9:43:53 Was the patient premedicated? Yes 9:43:56 Is patient on blood thinner?No 9:44:00 Patient diabetic? No. 9:44:02 ----Pre-sedation anethsthesia assessment.---- 9:44:06 Previous problem with sedation/anesthesia? No ? 9:44:09 Snore? Yes 9:44:11 Sleep apnea? Yes 9:44:14 Deviated septum? Unknown 9:44:17 Opens mouth fully? Yes 9:44:20 Sticks out tongue? Yes 9:44:47 Dentures? No ? 9:44:56 Pre procedure: right dorsailis pedis pulse 1+ Palpable, but thready & weak; easily obliterated 9:45:01 Modified Riley's test Ulnar < 7 seconds 9:45:12 IV patent on arrival in left forearm with 0.9% NaCl at KVO. 9:45:58 Right Radial & Right Groin area was prepped with chlora-prep and draped in sterile fashion 9:46:01 Alarms reviewed by R. N. 9:46:01 Sharps counted by scrub and verified by R.N. 9:46:08 Use device set Radial Dx or PCI 9:46:10 ACIST Syringe (10862) opened to sterile field. 9:46:11 Medline Cath Pack ([id number]) opened to sterile field. 9:46:11 Bag Decanter () opened to sterile field. 9:46:12 ACIST Hand Control (72000) opened to sterile field. 9:46:12 ACIST Manifold (44354) opened to sterile field. 9:46:14 MBrace Wrist Support ([id number]) opened to sterile field. 9:46:15 NEEDLE Cook 21G 4cm Radial ([id number]) opened to sterile field. 9:46:17 EMERALD Guide Wire (050-134) opened to sterile field. 9:46:18 SHEATH 6FR RAIN ([id number]) opened to sterile field. 9:48:45 Radial Cocktail (Verapamil 2mg/Nitro 400mcg/Heparin 1500units) 1 syring e added to field was administered by Sophia Ford RN; used for procedure; Verbal order read back and verified. 9:49:05 Physician arrived 9:49:05 --------ALL STOP TIME OUT------ 9:49:07 Final Timeout: patient, procedure, and site verified with staff and physician. All members of the team are in agreement. 9:49:14 Right Radial & Right Groin site verified by team. 9:49:19 Fire Safety Assessment: A--An alcohol-based skin anteseptic being used preoperatively., C--Open oxygen or nitrous oxide is being used., D--An ESU, laser, or fiber-optic light is being used. 9:49:26 Physical assessment completed. ASA score P 2 - A patient with mild systemic disease as per Tolu Hung MD. 9:49:32 2) 60-89 Mildly reduced kidney function, and other findings (as for stage 1) point to kidney disease. 9:49:38 Maximum allowable contrast dose (3.7 X eGFR X 0.75)203 ml. 9:49:45 Sedation plan: IV Moderate Sedation Medication:Versed, Fentanyl 9:50:12 Versed 2 mg I.V. was administered by Sophia Ford RN; for sedation; Verbal order read back and verified. 9:50:18 Fentanyl 50 mcg I.V. was administered by Sophia Ford RN; for sedation ; Verbal order read back and verified. 9:53:03 Zero performed for pressure channel P1 9:57:17 Procedure started. 9:57:25 Local anesthetic to right radial artery with Lidocaine 2% by Tolu Hung MD.INITIAL ACCESS ONLY 9:57:41 A 6 Fr Short sheath was inserted into the Right Radial artery 9:57:52 A DIAGNOSTIC Car 110cm 5Fr catheter ([id number]) was advanced over the wire and used for Procedure. 9:58:31 Injector settings: Ml/sec: 5, Volume: 15, 9:58:38 LV gram done using JAIMES 9:59:00 LV hemodynamics recorded. 9:59:12 EF : 55 % 9:59:53 LCA angiography performed. 9:59:58 Injector settings: Ml/sec: 3, Volume: 6, 10::55 Lab Result : Creatinine 1.1 mg/dl 10::55 Lab Result : BUN 21 mg/dl 10:00:55 Lab Result : eGFR NONAFRICAN 73.26000 ml/min 10:00:55 Lab Result : Hemoglobin 14.6 g/dl 10::55 Lab Result : Hematocrit 43.3 % 10:01:26 Lab results completed and on chart. 10:01:32 Risk of Mortality: 0.3 10:01:39 Risk of blood transfusion: 0.2 10:01:43 Risk of PATRICIA: 8.8 10:02:00 RCA angiography performed. 10:02:06 Injector settings: Ml/sec: 3, Volume: 6, 10:03:04 Catheter removed. 10:03:30 ZEPHYR REGULAR TR BAND (801389) opened to sterile field. 10:03:46 Sheath removed intact; hemostasis achieved with Mechanical Compression to the Right Radial artery. 10:03:49 Procedure ended.(Physican Out) 10:04:03 Contrast amount:Isovue 300 49ml. 10:04:12 Fluoroscopy time 02.50 minutes. 10:04:18 Fluoroscopy dose: 702 mGy 10:04:18 Flurop Dose total: 702 10:04:28 Dose Area Product 34955 mGy/cm. 10:04:32 Maximum allowable dose exceeded? No. 10:04:35 Sharps counted by scrub and verified by R.N. 10:04:39 Lehigh band inflated with 9cc of air. 10:04:54 Insertion/operative site no bleeding no hematoma. 10:05:13 Post right radial artery:stable 10:05:17 Post-procedure physical assessment completed. ASA score P 2 - A patient with mild systemic disease as per Tolu Hung MD. 10:05:34 Post procedure rhythm: unchanged. 10:05:38 Estimated blood loss: 5 ml 10:05:39 Post procedure instruction explained to patient.Patient verbalizes understanding. 10:05:40 Patient needs reinforcement of post procedure teaching. 10:05:58 Procedure type changed to Cath procedure, Diagnostic procedure, LHC, LH C w/Coronaries, Sedation Charges, Moderate Sedation up to 15 minutes 10:06:00 Procedure and supply charges have been captured, reviewed, submitted an d are correct. 10:06:29 Procedure Complication : No complications 10:06:35 Vital chart was stopped 10:06:37 [facility] Findings: mild to moderate CAD (<70%) 10:06:40 Operative report dictated upon procedure completion. 10:06:41 See physician's report for complete and final results. 10:06:43 Report given to Pre/Post Procedure Room. 10:06:49 Patient transfered to Pre/Post Procedure Room with Stretcher. 10:06:53 Procedure ended. 10:06:53 Full Disclosure recording stopped 10:06:56 End room use (Document Last) Device Usage Item Name Manufacture Quantity Catalog Hospital Part Current Minima l Lot# / Number Charge Number Stock Stock Serial# Code ACIST Acist 1 47485 [id number] [id number] 20 Syringe Medical (90614) Systems Inc Medline Medline 1 [id number] 87153 740691 5 Cath Pack ([id number]) Bag Microtek 1 019413 91177 414646 5 Decanter Medical Inc. () ACIST Hand Acist 1 30591 073376 431135 590057 5 Control Medical (57869) Systems Inc ACIST Acist 1 32542 295617 138889 956751 5 Manifold Medical (88704) Systems Inc MBrace Advanced 1 [id number] [id number] 84298 985814 5 Wrist Vascular Support Dynamics ([id number]) NEEDLE Cook Cook Medical 1 [id number] 198223 639228 5 21G 4cm Radial (M01628) EMERALD Cardinal 1 502-455 835527 126933 732432 5 Guide Wire Health (502455) SHEATH 6FR Cardinal 1 [id number] 097869 [id number] [id number] 5 [facility] (5589062) DIAGNOSTIC Terumo 1 [id number] 392661 632611 720271 5 Car 110cm 5Fr catheter (574440) ZEPHYR Cardinal 1 953086 796015 4170314 141837 5 REGULAR TR Health BAND (839115) Signature Audit Isom Stage Time Signature Unsigned Intra-Procedure 03/31/2020 Barbara 10:07:15 AM Jonatan RT(R) (CV) Intra-Procedure 03/31/2020 Sophia Ford 10:07:46 AM RN Intra-Procedure 03/31/2020 Tolu Hnug MD 10:08:20 AM [id number] [place] [address]
[2020-03-31 07:28] VITALS: BP 147/83; Ht 172.7 cm; Wt 95.5 kg
[2020-03-31 08:10] LABS: CALC OSMOLALITY 271 mosm/kg (275-300); CALCIUM 8.5 mg/dL (8.5-10.1); CHLORIDE - SERUM 101 mmol/L (98-107); CHOL - HDL RATIO 7.3 ratio (2.3-4.9); CHOLESTEROL, TOTAL 226 mg/dL (0-200); CREATININE - SERUM 1.1 mg/dL (0.6-1.3); GLUCOSE 113 mg/dL (74-106); HDL CHOLESTEROL 31 mg/dL (32-96); SODIUM 134 mmol/L (136-145); UREA NITROGEN 21 mg/dL (7-18); eGFR NON AFRICAN AMERICAN 73 mL/min (90-120)
[2020-03-31 08:15] LABS: ALT (SGPT) 29 U/L (10-68)
[2020-03-31 08:16] LABS: TRIGLYCERIDE 1087 mg/dL (30-200)
[2020-03-31 09:54] LABS: BASOPHILS 0.5 % (0-2); EOSINOPHILS 2.8 % (0-7); HEMATOCRIT 43.3 % (42.0-54.0); HEMOGLOBIN 14.6 g/dL (13.5-17.5); IMMATURE GRANULOCYTES 0.2 % (0-5); LYMPHOCYTES 37.2 % (15-50); MCH 28.5 pg (26.0-34.0); MCHC 33.7 g/dL (31.0-37.0); MCV 84.4 fL (80.0-100.0); MEAN PLATELET VOLUME 10.5 fL (7.4-10.4); MONOCYTES 9.5 % (2-11); NEUTROPHILS 49.8 % (40-80); PLATELET COUNT 214 10x3/uL (130-400); RBC 5.13 10x6/uL (4.20-6.10); RDW 13.4 % (11.5-14.5); WBC 6.4 10x3/uL (4.8-10.8)
--- NOTE | 2020-03-31 10:15 | NUR ---
PATIENT ARRIVED TO ROOM 7, PLACED ON CM AND 2L NC. VSS. RIGHT RADIAL SITE WITH Z BAND AND WRIST IMMOBILIZER IN PLACE, NO S/S OF BLEEDING OR HEMATOMA. NO C/O PAIN, NUMBNESS, OR TINGLING. PATIENT GIVEN WATER PER REQUEST, NO N/V. SPOUSE PRESENT AT BEDSIDE.
--- NOTE | 2020-03-31 10:30 | NUR ---
PATIENT AWAKE, EATING SANDWICH AND DRINKING WATER, NO N/V. SPOUSE PRESENT AT BEDSIDE. VSS ON ROOM AIR. RIGHT RADIAL SITE IS CDI, NO S/S OF BLEEDING OR HEMATMA. NO C/O PAIN, NUMBNESS, OR TINGLING.
--- NOTE | 2020-03-31 11:00 | NUR ---
PHYSICIAN AT BEDSIDE TO UPDATE PATIENT AND FAMILY, ALL QUESTIONS ANSWERED. VSS ON ROOM AIR. RIGHT RADIAL SITE IS CDI, NO S/S OF BLEEDING OR HEMATOMA. NO C/O PAIN, NUMBNESS, OR TINGLING.
--- NOTE | 2020-03-31 11:10 | NUR ---
2CC OF AIR REMOVED FROM Z BAND, SMALL AMOUNT OF BLEEDING NOTED, 3CC OF AIR REPLACED WITH NO FURTHER S/S OF BLEEDING OR HEMATOMA.
--- NOTE | 2020-03-31 11:30 | NUR ---
4CC OF AIR REMOVED FROM Z BAND, NO S/S OF BLEEDING OR HEMATOMA NOTED. VSS ON ROOM AIR. SPOUSE PRESENT AT BEDSIDE. NO C/O PAIN, NUMBNESS, OR TINGLING. NO N/V.
--- NOTE | 2020-03-31 12:00 | NUR ---
REMAINING AIR REMOVED FROM Z BAND, DRESSING APPLIED IS CDI, NO S/S OF BLEEDING OR HEMATOMA. NO C/O PAIN, NUMBNESS, OR TINGLING. NO N/V. VSS ON ROOM AIR. WRITTEN AND VERBAL DISCHARGE INSTRUCTIONS GIVEN TO PATIENT AND SPOUSE, BOTH VOICE UNDERSTANDING.
--- NOTE | 2020-03-31 12:30 | NUR ---
IV REMOVED, PATIENT DISCONNECTED FROM MONITORS TO GET DRESSED, RIGHT RADIAL DRESSING IS CDI, NO S/S OF BLEEDING OR HEMATOMA. NO C/O PAIN, NUMBNESS, OR TINGLING. NO N/V.
--- NOTE | 2020-03-31 12:40 | NUR ---
PATIENT TRANSPORTED VIA WHEELCHAIR TO CAR WITH SPOUSE DRIVING, ALL BELONGINGS WITH PATIENT.
== END 2020-03-31 12:40 ==
LOC: D.CATH 06:58
PROVIDERS: ATTEND Internal Medicine Cardiovascular Disease
DX: I20.9 Angina pectoris, unspecified (principal); R94.30 Abnormal result of cardiovascular function study, unspecified; I10 Essential (primary) hypertension; R06.09 Other forms of dyspnea; R51 Headache; R42 Dizziness and giddiness